=== PATIENT | female | born 1985 ===

== ENCOUNTER 2022-08-10 13:01 | Outpatient (RCR) | payer OTHER, SELFPAY ==
--- NOTE | 2022-09-17 11:23 | MHC.SP.ADU ---
Addendum entered and electronically signed by Doreen Bocanegra MA, CCC-PRODUCT DEVELOPMENT ASSISTANT 09/17/22 14:05: As a clinical mine engineering supervisor, I have reviewed and agree with the content of this report. 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 Therese?s reported concerns include speech, voice, language, and cognition. Therese reports that during the past few months she has noticed an increase in forgetfulness and loss of focus which has impacted daily life and work. Therese reports she sets several reminders in her phone for various tasks including reminders to punch out at work and to start her car. Therese described characteristics of her speech and voice as mumbling, soft, dysfluent, and unclear. She reports her speech is ?much worse? when she first wakes up in the morning. Per patient intake form, Therese often asks for repetition, is frequently misunderstood, reverses words/numbers/letters, is awkward/clumsy, and has difficulty with the following: word finding, maintaining the topic of conversation, orientation/memory, being understood by others, and expressing thoughts. 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 Recommend patient to monitor for signs and symptoms of dysphagia. Reported Speech, Language, Cognition difficulties: Understanding Attention Memory Cognition Speaking Problem Solving Voice Assessment Speech Production: Dysarthric Slow Informal Voice Assessment: Voice Loudness: Mildly Soft/Quiet Voice Phonatory-based Quality: Breathy, Weak Voice Pitch: Limited Variation Voice Other Observations: Inadequate Breath Support Therese was administered various tasks to assess cognitive-linguistic and motor speech domains. MOTOR SPEECH and VOICE Therese presents with low volume, monotone pitch, inconsistent prosody, and imprecise articulation. When prompted to produce a prolonged ?AHH,? Therese was unable to sustain a steady pitch and volume. Compared to normative data of adult females, Therese?s maximum phonation time of [a] (?AHH?) is 8.5X less. Therese produced a maximum phonation time of 3 seconds as compared to the average time of 25.7 seconds (Milton et. al., 1987). Therese reported that the task was challenging and she felt out of breath. Alternating motion rate (AMR) and sequential motion rate (SMR) were assessed. AMR is assessed by having the individual produce the following sounds as fast as possible in three separate tasks: /p/ (?puh?), /t/ (?tuh?), and /k/ (?kuh?). SMR is assessed by having the individual produce the three sounds together as fast as possible in one singular task: ?puh tuh kuh.? Both AMR and SMR productions were slow and disorganized. Targeted sounds grew increasingly distorted as speed increased. Therese demonstrated difficulty with breath support as demonstrated by taking frequent breaks in production. Cognition: MEMORY: On various tasks targeting memory, Therese presented with a relative strength with immediate recall tasks versus delayed recall tasks, with tasks pertaining to a story or visual versus an unrelated word list, and with recognition tasks versus recall tasks. For example, when tasked to state yes or no to the prompt, ?Is [TARGET WORD] on this list?? Therese answered most of the questions accurately as compared to being asked to recall the list following four sequential repetitions. In general, additional repetitions auditory information assisted in improvement of memory recall. Therese was read aloud the questions of the AD8 Dementia Screening Interview and prompted to answer based on observed changes in the past several years. Through this screening, Therese reported changes in problems with judgement, less interest in hobbies/activities, repetition of the same information over and over, trouble remembering appointments, and daily problems with thinking and/or memory. Based on clinical research of the AD8, Therese?s score of 5 indicates ?cognitive impairment is likely to be present.? LANGUAGE: Tasks targeting language were a relative strength for Therese. Therese named 9 of 10 line drawings accurately responding quickly to each image presented and performing within functional limits. When shown an image of pliers, Therese responded, ?I have no idea what tools are? then produced the word ?wrench.? When asked to name as many fruits and vegetables in 1 minute. Therese stated 16 fruits and vegetables in 60 seconds. Impressions and Recommendations Impact on Daily Function/Activity Limitations: Daily Activities: Moderate Interpersonal Interactions: Moderate Employment: Moderate Community: Moderate Recommendation for Speech Therapy: Further Testing Needed Outpatient Speech Therapy Frequency/Duration: 1x/week x 12 weeks Time to Reassess: 3 months Therese presents with moderate-severe cognitive-linguistic impairment characterized by difficulty in memory recall tasks and difficulty in daily thinking and memory tasks. Therese also presents with diminished motor speech and voice function characterized by low volume, monotone pitch, inconsistent prosody, imprecise articulation, and difficulty with breath support. Characteristics of Therese?s speech are consistent with dysarthria, which is commonly present among individuals with Sweetwater's disease. Further evaluation of cognition, motor speech, and voice domains are recommended. Commodity Lead Goals: LTG 1 Therese will complete additional standardized testing to obtain standardized scores and update goals as appropriate. LTG 2 Therese will improve cognitive-linguistic skills. LTG 3 Therese will improve overall speech intelligibility and improve precision of speech sounds. LTG 4 Therese will improve overall breath support to improve vocal quality. Short Term Goals: STG 1.1 Therese will complete the Cognitive Linguistic Quick Test (CLQT) with 100% completion to better inform goals in the area of attention and memory. STG 1.2 Therese will complete the Communication Activities of Daily Living -3 (CADL-3) to better inform goals in the area of functional communication skills. STG 2.1 Therese will attend weekly outpatient speech therapy appointments with intermittent reminders from clinician. STG 2.2 When given a written or oral 5-word list, Therese will recall list with 80% accuracy when provided with moderate assistance. STG 3.1 Therese will independently recall clear speech strategies with 100% accuracy. STG 3.2 Therese will produce clear speech at the word level in structured practice in 80% of trials with moderate support. STG 4.1 Therese will accurately demonstrate diaphragmatic breathing in isolation in 100% of trials with moderate cueing. STG 4.2 Therese will complete prolonged ?ah? for 4 or more seconds in 80% of opportunities when provided with maximum in order to build breath support. Recommended Referrals to be Discussed with Primary Care Provider: Occupational Therapy Eval Recommend referral for occupational therapy due to observed loss of fine motor control. Patient Education: Completed: Yes Patient/Caregiver Education: Described Results of Evaluation Patient expressed understanding of evaluation Patient agrees with goals and treatment plan It was a pleasure to meet and work with Therese. If you have any questions about the contents of this report, do not hesitate to contact me at [phone] or [email or web address] [facility]/Clinical Fellow: Yes: Lindy Thompson M.A., CF-PRODUCT DEVELOPMENT ASSISTANT Supervisory Statement: Yes Speech Language Pathologist: Doreen Bocanegra M.A., CCC-PRODUCT DEVELOPMENT ASSISTANT
== END 2022-09-22 12:19 | disposition still patient (30) ==
LOC: HO.SH 13:01
PROVIDERS: Visit Provider Psychiatry & Neurology Neurology
DX: G31.84 Mild cognitive impairment of uncertain or unknown etiology (principal)
CPT/HCPCS: 96125

== ENCOUNTER 2022-10-28 14:00 | Outpatient (RCR) | payer OTHER, SELFPAY | END 2022-10-29 14:00 | disposition home or self-care (01) | LOC: HO.PTWFD 14:00 | PROVIDERS: PCP Internal Medicine; Visit Provider Psychiatry & Neurology Neurology | DX: R26.89 Other abnormalities of gait and mobility (principal) | CPT/HCPCS: 97110; 97150; 97162; 97530; 97535 ==

== ENCOUNTER 2022-12-31 14:00 | Outpatient (RCR) | payer OTHER, SELFPAY ==
--- NOTE | 2022-10-07 14:59 | MHC.SLORD ---
Speech Language Pathology Order Status: Pt works M-Th at 4pm. Requested no morning appointments, but possibly open to 11am or 1pm Fridays.
== END 2023-04-21 14:08 | disposition home or self-care (01) ==
LOC: HO.SH 14:00
PROVIDERS: Visit Provider Psychiatry & Neurology Neurology
DX: G31.84 Mild cognitive impairment of uncertain or unknown etiology (principal)
CPT/HCPCS: 92507

== ENCOUNTER 2024-04-10 13:05 | Outpatient (RCR) | payer OTHER, SELFPAY ==
[2024-02-17 12:54] VITALS: BP 110/64; PULSE 81; O2SAT 99
== END 2024-05-22 09:03 | disposition home or self-care (01) ==
LOC: HO.PTWFD 13:05
PROVIDERS: PCP Internal Medicine; Visit Provider Psychiatry & Neurology Neurology
DX: G25.9 Extrapyramidal and movement disorder, unspecified (principal)
CPT/HCPCS: 97110; 97112; 97116; 97162